=== PATIENT | female | born 1935 | race Two or more races ===

== ENCOUNTER 2022-05-05 16:49 | Inpatient (IN) | payer MEDICARE, MEDICAID ==
[~2022-05-05] VITALS: Ht 144.8 cm; Wt 62.6 kg
[2022-05-05 17:40] LABS: BASOPHILS % 1.3 % (0.0-2.0); EOSINOPHILS % 1.3 % (0.0-5.0); HEMATOCRIT. 32.3 % (36.0-48.0); HEMOGLOBIN. 9.9 g/dL (12.0-16.0); LYMPHOCYTES % 36.5 % (20.0-50.0); MEAN PLATELET VOLUME 8.3 fl (7.4-10.4); MONOCYTES % 8.7 % (2.0-8.0); NEUTROPHILS % 52.2 % (40.0-76.0); PLATELET 530 x1000/uL (130-400); RED BLOOD CELL COUNT 3.94 mill/uL (4.2-5.4); RED CELL DISTRIBUTION WIDTH 17.7 % (11.6-14.6)
[2022-05-05 17:52] LABS: CHLORIDE 102 mEq/L (98-107)
[2022-05-05 18:03] LABS: ETHANOL BLOOD < 10 mg/dL
[2022-05-05] MEDS ORDERED: MECLIZINE 25MG TABLET PO PRN (20:30)
[2022-05-05] MEDS ORDERED: ONDANSETRON HCL 4MG/2ML INJ IV PRN (20:30)
[2022-05-05] MEDS ORDERED: DIPHENHYDRAMINE 50MG/ML VIAL IV PRN (20:30)
[2022-05-05] MEDS ORDERED: CLONIDINE 0.1MG TABLET PO PRN (20:30)
[2022-05-05] MEDS ORDERED: DEXTROSE 50% WATER 50ML SYRINGE IV PRN (20:30)
[2022-05-05] MEDS ORDERED: MAGNESIUM/ALUMINUM HYDROXIDE/SIMETHICONE 30ML UDC PO PRN (20:30)
[2022-05-05] MEDS ORDERED: ACETAMINOPHEN 325MG TABLET PO PRN ×2 (20:30)
[2022-05-05] MEDS ORDERED: HYDRALAZINE 20MG/ML VIAL IV PRN (20:30)
[2022-05-05] MEDS ORDERED: TRAMADOL 50MG TABLET PO PRN (20:30)
[2022-05-05 20:43] LABS: CLARITY URINE CLEAR (CLEAR); COLOR URINE YELLOW (YELLOW); KETONES URINE NEGATIVE (NEGATIVE); LEUKOCYTE ESTERASE URINE NEGATIVE (NEGATIVE); NITRITE URINE NEGATIVE (NEGATIVE); OCCULT BLOOD URINE NEGATIVE (NEGATIVE); PROTEIN URINE NEGATIVE (NEGATIVE); SPECIFIC GRAVITY URINE 1.019 (1.005-1.030)
[2022-05-05 20:55] LABS: *AMPHETAMINES SCREEN URINE NEGATIVE (NEGATIVE); *BARBITURATES SCREEN URINE NEGATIVE (NEGATIVE); *BENZODIAZEPINES SCREEN URINE NEGATIVE (NEGATIVE); *COCAINE SCREEN URINE NEGATIVE (NEGATIVE); CANNABINOID URINE SCREEN NEGATIVE (NEGATIVE); METHADONE URINE SCREEN NEGATIVE (NEGATIVE); OPIATES URINE SCREEN NEGATIVE (NEGATIVE); PHENCYCLIDINE URINE SCREEN NEGATIVE (NEGATIVE)
[2022-05-05] MEDS: SODIUM CHLORIDE 0.9% INJ 3ML FLUSH IVF SCH ×2 (22:03→23:51)
[2022-05-05] MEDS: BLOOD SUGAR DIAGNOSTIC STRIP TEST SCH (22:08)
[2022-05-05] MEDS: ATORVASTATIN CALCIUM 40MG TABLET PO SCH (22:32)
[2022-05-05] MEDS: METOPROLOL TARTRATE 25MG TABLET PO SCH (22:32)
[2022-05-05] MEDS: OMEPRAZOLE 20MG CAPSULE EXTENDED RELEASE PO SCH (22:33)
[2022-05-05] MEDS: INSULIN LISPRO 100 UNITS/ML SUBCUT SCH (22:33)
[2022-05-05] MEDS: INSULIN GLARGINE 100 UNITS/ML SUBCUT SCH (22:34)
[2022-05-05] MEDS ORDERED: IOHEXOL-350 100 ML BOTTLE ONE (22:51)
[2022-05-05] MEDS: PREGABALIN 50 MG CAPSULE PO SCH (23:15)
[2022-05-06 02:00] VITALS: BP 145/62
[2022-05-06] MEDS: OMEPRAZOLE 20MG CAPSULE EXTENDED RELEASE PO SCH ×2 (06:20→20:59)
[2022-05-06] MEDS: METFORMIN HCL 500MG TABLET PO SCH (06:20)
[2022-05-06] MEDS: BLOOD SUGAR DIAGNOSTIC STRIP TEST SCH ×3 (06:31→20:59)
[2022-05-06] MEDS: INSULIN LISPRO 100 UNITS/ML SUBCUT SCH ×3 (06:31→21:00)
[2022-05-06 08:00] VITALS: BP 145/52
[2022-05-06] MEDS: PREGABALIN 50 MG CAPSULE PO SCH ×2 (09:00→21:00)
[2022-05-06] MEDS ORDERED: FERROUS SULFATE 325MG TABLET PO SCH (09:00)
[2022-05-06] MEDS: APIXABAN 2.5 MG TABLET PO SCH (09:18)
[2022-05-06] MEDS: METOPROLOL TARTRATE 25MG TABLET PO SCH ×2 (09:20→21:00)
[2022-05-06] MEDS ORDERED: FERR325T6 PO (10:45)
[2022-05-06] MEDS ORDERED: NALOXONE HCL 0.4MG/ML VIAL IV PRN (10:45)
[2022-05-06] MEDS ORDERED: METF-414 PO (10:46)
[2022-05-06] MEDS ORDERED: METO-396 PO (10:46)
[2022-05-06] MEDS ORDERED: ATOR80TA PO (10:47)
[2022-05-06] MEDS ORDERED: APIX2.5T PO (10:47)
[2022-05-06] MEDS ORDERED: OMEP20TA23 PO (10:48)
[2022-05-06] MEDS ORDERED: VALS160T28 PO (10:48)
[2022-05-06] MEDS ORDERED: DAPA10TA PO (10:49)
[2022-05-06] MEDS ORDERED: PREG50CA PO (10:49)
[2022-05-06] MEDS ORDERED: INSU300I3 SQ (10:50)
[2022-05-06 12:00] VITALS: BP 161/63
[2022-05-06] MEDS: SODIUM CHLORIDE 0.9% INJ 3ML FLUSH IVF SCH ×2 (14:00→21:23)
[2022-05-06 16:00] VITALS: BP 137/56
[2022-05-06 20:00] VITALS: BP 114/42
[2022-05-06] MEDS: ATORVASTATIN CALCIUM 40MG TABLET PO SCH (21:01)
[2022-05-06] MEDS: INSULIN GLARGINE 100 UNITS/ML SUBCUT SCH (21:23)
[2022-05-07] VITALS: BP 118/55
[2022-05-07 04:00] VITALS: BP 136/62
[2022-05-07] MEDS: OMEPRAZOLE 20MG CAPSULE EXTENDED RELEASE PO SCH ×2 (05:44→21:50)
[2022-05-07] MEDS: BLOOD SUGAR DIAGNOSTIC STRIP TEST SCH ×4 (06:13→21:50)
[2022-05-07] MEDS: SODIUM CHLORIDE 0.9% INJ 3ML FLUSH IVF SCH ×3 (06:13→21:50)
[2022-05-07] MEDS: INSULIN LISPRO 100 UNITS/ML SUBCUT SCH ×4 (06:14→21:59)
[2022-05-07] MEDS: METFORMIN HCL 500MG TABLET PO SCH ×2 (06:30→16:54)
[2022-05-07 08:00] VITALS: BP_SYST 124; BP_SYST 158; BP_DIAS 54; BP_DIAS 61
[2022-05-07] MEDS: PREGABALIN 50 MG CAPSULE PO SCH ×2 (09:18→21:50)
[2022-05-07] MEDS: APIXABAN 2.5 MG TABLET PO SCH ×2 (09:19→16:54)
[2022-05-07] MEDS: METOPROLOL TARTRATE 25MG TABLET PO SCH ×2 (09:19→21:00)
[2022-05-07] MEDS: FERROUS SULFATE 325MG TABLET PO SCH (09:41)
[2022-05-07 12:00] VITALS: BP 158/75
[2022-05-07] MEDS ORDERED: TRAM50TA3 PO (14:32)
[2022-05-07] MEDS ORDERED: FERR325T6 PO (14:32)
[2022-05-07] MEDS ORDERED: DULA0.75 SQ ×2 (14:32→14:33)
[2022-05-07 16:00] VITALS: BP 135/59
[2022-05-07 16:17] LABS: BASOPHILS % 1.1 % (0.0-2.0); EOSINOPHILS % 1.1 % (0.0-5.0); HEMATOCRIT. 30.9 % (36.0-48.0); HEMOGLOBIN. 9.6 g/dL (12.0-16.0); LYMPHOCYTES % 24.3 % (20.0-50.0); MEAN CORPUSCULAR HEMOGLOBIN 24.9 pg (28.0-32.0); MEAN CORPUSCULAR VOLUME 80.2 fL (81.0-99.0); MEAN PLATELET VOLUME 7.9 fl (7.4-10.4); MONOCYTES % 7.6 % (2.0-8.0); NEUTROPHILS % 65.9 % (40.0-76.0); PLATELET 512 x1000/uL (130-400); RED BLOOD CELL COUNT 3.85 mill/uL (4.2-5.4); RED CELL DISTRIBUTION WIDTH 17.2 % (11.6-14.6)
[2022-05-07 16:31] LABS: CHLORIDE 104 mEq/L (98-107)
[2022-05-07 20:00] VITALS: BP 116/51
[2022-05-07] MEDS: ATORVASTATIN CALCIUM 40MG TABLET PO SCH (21:50)
[2022-05-07] MEDS: INSULIN GLARGINE 100 UNITS/ML SUBCUT SCH (21:59)
[2022-05-08] VITALS: BP 123/53
[2022-05-08 04:00] VITALS: BP 131/60
[2022-05-08] MEDS: SODIUM CHLORIDE 0.9% INJ 3ML FLUSH IVF SCH ×2 (06:29→14:36)
[2022-05-08] MEDS: BLOOD SUGAR DIAGNOSTIC STRIP TEST SCH ×3 (06:29→16:13)
[2022-05-08] MEDS: INSULIN LISPRO 100 UNITS/ML SUBCUT SCH ×3 (06:32→16:29)
[2022-05-08] MEDS ORDERED: FAMOTIDINE 20MG TABLET PO SCH (06:40)
[2022-05-08 08:00] VITALS: BP 130/58
[2022-05-08] MEDS: METFORMIN HCL 500MG TABLET PO SCH ×2 (08:58→16:21)
[2022-05-08] MEDS: PREGABALIN 50 MG CAPSULE PO SCH (08:58)
[2022-05-08] MEDS: FERROUS SULFATE 325MG TABLET PO SCH (08:58)
[2022-05-08] MEDS: APIXABAN 2.5 MG TABLET PO SCH ×2 (08:58→16:21)
[2022-05-08] MEDS: METOPROLOL TARTRATE 25MG TABLET PO SCH (08:58)
[2022-05-08 12:00] VITALS: BP 128/55
[2022-05-08 16:00] VITALS: BP 118/56
[2022-05-08 16:37] LABS: BASOPHILS % 1.2 % (0.0-2.0); EOSINOPHILS % 2.4 % (0.0-5.0); HEMATOCRIT. 30.8 % (36.0-48.0); HEMOGLOBIN. 9.6 g/dL (12.0-16.0); LYMPHOCYTES % 37.2 % (20.0-50.0); MEAN CORPUSCULAR HEMOGLOBIN 25.4 pg (28.0-32.0); MEAN CORPUSCULAR VOLUME 81.1 fL (81.0-99.0); MEAN PLATELET VOLUME 8.6 fl (7.4-10.4); MONOCYTES % 9.6 % (2.0-8.0); NEUTROPHILS % 49.6 % (40.0-76.0); PLATELET 540 x1000/uL (130-400); RED BLOOD CELL COUNT 3.79 mill/uL (4.2-5.4); RED CELL DISTRIBUTION WIDTH 17.4 % (11.6-14.6)
[2022-05-08 17:06] LABS: CHLORIDE 106 mEq/L (98-107)
[2022-05-08 17:07] VITALS: BP 118/56
== END 2022-05-08 17:50 | disposition home health service (06) | DRG 149 ==
LOC: ER 16:49 → 7EST 19:03 → EDBEDREQ 19:06 → EDBEDREQSVC 19:06
PROVIDERS: ADMIT Internal Medicine; ATTEND Internal Medicine
DX: H81.10 Benign paroxysmal vertigo, unspecified ear (principal); I69.398 Other sequelae of cerebral infarction; E78.00 Pure hypercholesterolemia, unspecified; I10 Essential (primary) hypertension; E11.65 Type 2 diabetes mellitus with hyperglycemia; M25.512 Pain in left shoulder; R29.701 NIHSS score 1; I48.0 Paroxysmal atrial fibrillation; Z83.3 Family history of diabetes mellitus
CPT/HCPCS: 36415; 70496; 70498; 70551; 71045; 73030; 73221; 80048; 80053; 80061; 80305; 80320; 81003; 82962; 83036; 84484; 85025; 93005; 93306; 97162; 97166; 99291; J1815; J8597; Q9967; G0480